=== PATIENT | female | born 1990 | race Caucasian/White ===

== ENCOUNTER 2018-06-19 10:14 | Emergency (ER) | payer BC, OTHER ==
[2018-06-19 10:30] VITALS: TEMP 99.5; O2SAT 99
--- NOTE | 2018-06-19 10:33 | ED.PDOC ---
History of Present Illness - General Chief Complaint: General Stated Complaint: flu-like symptoms Time Seen by Provider: 06/19/18 10:27 Source: patient Exam Limitations: no limitations - History of Present Illness Timing/Duration: getting worse - started two days ago Severity: moderate Improving Factors: nothing Worsening Factors: nothing Associated Symptoms: cough, fever/chills, loss of appetite, malaise, nausea/vomiting - no vomiting, weakness Allergies/Adverse Reactions: Allergies NO KNOWN ALLERGY Allergy (Unverified 10/22/12 22:25) Home Medications: Ambulatory Orders Benzonatate Perles [Tessalon Perles] 100 mg PO Q8HR PRN #21 cap 06/19/18 Guaifenesin [Mucinex] 600 mg PO BID #20 tab 06/19/18 Ondansetron [Zofran Odt] 4 mg PO Q4HR PRN #20 tab 06/19/18 Review of Systems - Review of Systems Constitutional: States: fever, weakness EENTM: States: nose congestion, throat pain Respiratory: States: cough. Denies: short of breath Cardiology: Denies: chest pain Gastrointestinal/Abdominal: States: nausea. Denies: abdominal pain, diarrhea, vomiting Genitourinary: Denies: dysuria, frequency Musculoskeletal: States: muscle pain Skin: States: no symptoms reported Neurological: States: no symptoms reported Endocrine: States: no symptoms reported Hematologic/Lymphatic: States: no symptoms reported Past Medical History (General) - Patient Medical History Hx Stroke: No Hx Congestive Heart Failure: No Hx Diabetes: No Hx Renal Disease: No Surgical History: no surgical history - Vaccination History Hx Influenza Vaccination: No - Social History Hx Tobacco Use: Yes Hx Substance Use: No - Female History Patient is a Female of Child Bearing Age (10 -59 yrs old): Yes Hx Last Menstrual Period: 03/03/12 Patient : No Expected Date of Delivery:: 12/10/12 Family Medical History - Family History Mother Family History: Unknown Living Status: Unknown Physical Exam - Physical Exam General Appearance: Alert, Obvious distress Eye Exam: bilateral normal Ears, Nose, Throat: hearing grossly normal, normal pharynx Neck: non-tender, supple Respiratory: no respiratory distress, rhonchi - that clear with coughing Cardiovascular/Chest: normal peripheral pulses, regular rate, rhythm, no edema Gastrointestinal/Abdominal: normal bowel sounds, soft, tenderness - diffuse, mild and no guarding/ rebound Back Exam: no CVA tenderness Extremity: normal range of motion, non-tender, normal inspection, no pedal edema Neurologic: alert, normal mood/affect, oriented x 3 Departure - Departure Clinical Impression: Bronchitis Disposition: Discharge to Home or Self Care Departure Forms: ED Discharge - Pt. Copy, Patient Portal Self Enrollment Referrals: Kobe Marion MD [Primary Care Provider] - 1-2 Weeks Prescriptions: Ondansetron [Zofran Odt] 4 mg PO Q4HR PRN #20 tab PRN Reason: Nausea Benzonatate Perles [Tessalon Perles] 100 mg PO Q8HR PRN #21 cap PRN Reason: Cough Guaifenesin [Mucinex] 600 mg PO BID #20 tab Home Medications: Ambulatory Orders Benzonatate Perles [Tessalon Perles] 100 mg PO Q8HR PRN #21 cap 06/19/18 Guaifenesin [Mucinex] 600 mg PO BID #20 tab 06/19/18 Ondansetron [Zofran Odt] 4 mg PO Q4HR PRN #20 tab 06/19/18
[2018-06-19] MEDS ORDERED: KETOROLAC TROMETHAMINE INJ 30 MG/ML VIAL IV ONE (10:34)
[2018-06-19] MEDS ORDERED: SODIUM CHLORIDE 0.9% 1000ML 1,000 ML IVS ONE (10:35)
--- NOTE | 2018-06-19 10:51 | RAD ---
EXAM DESCRIPTION: Chest,1 View CLINICAL HISTORY: 27 years Female, cough COMPARISON: None. TECHNIQUE: AP portable chest. FINDINGS: Fair expansion of the lungs is evident without consolidation, layering effusion, or large mass. Heart size and vascularity appear normal for AP technique and degree of inspiration. No gross bony, hilar, or mediastinal abnormalities are noted. IMPRESSION: Normal chest, one view Electronically signed by: Chele Oneill MD 06/19/2018 10:49 AM [facility] MA[employer]GER
[2018-06-19] MEDS ORDERED: ACETAMINOPHEN W/COD #3 TAB 1 EA TAB PO ONE (11:36)
[2018-06-19] MEDS ORDERED: ONDANSETRON INJ 4 MG/2 ML VIAL IV ONE (11:37)
[2018-06-19 11:52] VITALS: BP 105/68
== END 2018-06-19 11:52 | disposition home or self-care (01) ==
LOC: ER 10:14
DX: J40 Bronchitis, not specified as acute or chronic (principal); Z87.891 Personal history of nicotine dependence
CPT/HCPCS: 71045; 80053; 85025; 87502; J1885; J2405; J7030